=== PATIENT | male | born 1955 | race African-American/Black ===

== ENCOUNTER 2016-11-18 01:20 | Emergency (ER) | payer MEDICAID, OTHER ==
[~2016-11-18] VITALS: Ht 175.3 cm; Wt 91.0 kg
[2016-11-18 03:05] VITALS: BP 133/89
== END 2016-11-18 03:50 | disposition home or self-care (01) ==
LOC: ER 01:21
DX: H61.21 Impacted cerumen, right ear (principal); Z88.0 Allergy status to penicillin; I10 Essential (primary) hypertension
CPT/HCPCS: 99283; Z7610